=== PATIENT | female | born 1950 | race Caucasian/White ===

== ENCOUNTER 2017-08-04 22:11 | Emergency (ER) | payer MEDICARE ==
[~2017-08-04] VITALS: Ht 165.1 cm; Wt 92.0 kg
[2017-08-04 22:21] VITALS: BP 139/65; PULSE 67; RESP 16; TEMP 98; O2SAT 96
[2017-08-04] MEDS ORDERED: HYDR12.57 PO (22:32)
[2017-08-04] MEDS ORDERED: B-122000 PO (22:32)
[2017-08-04] MEDS ORDERED: ATEN25TA PO (22:32)
[2017-08-04] MEDS ORDERED: CALC500T37 PO (22:32)
[2017-08-04] MEDS ORDERED: CENTCHW4 CHEW (22:32)
[2017-08-04] MEDS ORDERED: POTA10CA PO (22:32)
[2017-08-04] MEDS ORDERED: SODIUM CHLORIDE 0.9% FLUSH 10 ML FLUSH IVF PRN (22:45)
--- NOTE | 2017-08-04 23:01 | PD ---
HPI Chief Complaint: Syncope/Near-Syncope Time Seen by Provider: 22:34 Travel History International Travel<30 days: No Contact w/Intl Traveler<30days: No Traveled to known affect area: No History of Present Illness HPI Patient apparently comes in by EMS, apparently had a episode of loss of consciousness, is unaware of her fall or impact. Patient had taken a combination of Zyrtec and Mamie-[place] flu and regular Mamie-[place]view after which she was not feeling well she still felt some malaise fatigue generalizeD. Along with a dry cough, denies any fever rash neck stiffness chest pain or abdominal pain or back pain Patient has a past medical/SURGICAL history significant for hypertension cholecystectomy, gastric bypass, pyloric stenosis, depression, and tonsillectomy PFSH Past Medical History Depression: Yes Hypertension: Yes Neurologic: Yes (MEMORY ISSUES) Tetanus Vaccination: < 5 Years Influenza Vaccination: Yes : 2 Para: 2 Tubal Ligation: Yes Past Surgical History Abdominal Surgery: Yes (GASTRIC BYPASS) Cholecystectomy: Yes Genitourinary Surgery: Yes (PYLORIC STENOSIS) Mastectomy: Yes (BILATERAL ) Tonsillectomy: Yes Social History Alcohol Use: No Tobacco Use: No Substance Use: No Allergies-Medications (Allergen,Severity, Reaction): Coded Allergies: No Known Allergies (Unverified , 08/04/17) Reported Meds & Prescriptions Reported Meds & Active Scripts Active Reported Calcium Ascorbate 500 Mg Tab 500 Mg PO DAILY B-12 (Cyanocobalamin) 2,000 Mcg Tab 2,000 Mcg PO DAILY Potassium Chloride ER (Potassium Chloride) 10 Meq Cap 10 Meq PO DAILY Centrum (Multiple Vitamins W/ Minerals) 1 Chew 1 Tab CHEW DAILY Hydrochlorothiazide 12.5 Mg Cap 12.5 Mg PO DAILY Atenolol 25 Mg Tab 25 Mg PO HS Review of Systems General / Constitutional: No: Fever Eyes: No: Visual changes HENT: Positive: Rhinorrhea Cardiovascular: No: Chest Pain or Discomfort Respiratory: Positive: Cough Gastrointestinal: No: Abdominal Pain Genitourinary: No: Dysuria Musculoskeletal: No: Pain Skin: No Rash Neurologic: No: Weakness Psychiatric: No: Depression Endocrine: No: Polydipsia Hematologic/Lymphatic: No: Easy Bruising Physical Exam Narrative GENERAL: SKIN: Warm and dry. HEAD: Atraumatic. Normocephalic. EYES: Pupils equal and round. No scleral icterus. No injection or drainage. ENT: No nasal bleeding or discharge. Mucous membranes pink and moist. NECK: Trachea midline. No JVD. CARDIOVASCULAR: Regular rate and rhythm. RESPIRATORY: No accessory muscle use. Clear to auscultation. Breath sounds equal bilaterally. GASTROINTESTINAL: Abdomen soft, non-tender, nondistended. MUSCULOSKELETAL: Extremities without clubbing, cyanosis, or edema. No obvious deformities. NEUROLOGICAL: Awake and alert. No obvious cranial nerve deficits. Motor grossly within normal limits. Five out of 5 muscle strength in the arms and legs. Normal speech. PSYCHIATRIC: Appropriate mood and affect; insight and judgment normal. Data Data Last Documented VS Vital Signs Date Time Temp Pulse Resp B/P (MAP) Pulse Ox O2 Delivery O2 Flow Rate FiO2 08/04/17 23:30 62 16 168/72 (104) 100 Room Air 08/04/17 22:21 98.0 Orders Orders Electrocardiogram (08/04/17 22:45) Complete Blood Count With Diff (08/04/17 22:45) Comprehensive Metabolic Panel (08/04/17 22:45) B-Type Natriuretic Peptide (08/04/17 22:45) Troponin I (08/04/17 22:45) Act Partial Throm Time (Ptt) (08/04/17 22:45) Prothrombin Time / Inr (Pt) (08/04/17 22:45) Urinalysis - C+S If Indicated (08/04/17 22:45) Chest, Single Ap (08/04/17 22:45) Ct Brain W/O Iv Contrast(Rout) (08/04/17 22:45) Ecg Monitoring (08/04/17 22:45) Iv Access Insert/Monitor (08/04/17 22:45) Oximetry (08/04/17 22:45) Sodium Chloride 0.9% Flush (Ns Flush) (08/04/17 22:45) Influenzae A/B Antigen (08/04/17 23:01) Labs Laboratory Tests Test 08/04/17 22:50 White Blood Count 8.0 TH/MM3 Red Blood Count 4.84 MIL/MM3 Hemoglobin 12.2 GM/DL Hematocrit 37.1 % Mean Corpuscular Volume 76.6 FL Mean Corpuscular Hemoglobin 25.3 PG Mean Corpuscular Hemoglobin Concent 33.0 % Red Cell Distribution Width 15.3 % Platelet Count 245 TH/MM3 Mean Platelet Volume 8.0 FL Neutrophils (%) (Auto) 71.6 % Lymphocytes (%) (Auto) 21.4 % Monocytes (%) (Auto) 4.6 % Eosinophils (%) (Auto) 1.8 % Basophils (%) (Auto) 0.6 % Neutrophils # (Auto) 5.7 TH/MM3 Lymphocytes # (Auto) 1.7 TH/MM3 Monocytes # (Auto) 0.4 TH/MM3 Eosinophils # (Auto) 0.1 TH/MM3 Basophils # (Auto) 0.0 TH/MM3 CBC Comment DIFF FINAL Differential Comment Prothrombin Time 9.8 SEC Prothromb Time International Ratio 1.0 RATIO Activated Partial Thromboplast Time 20.5 SEC Blood Urea Nitrogen 17 MG/DL Creatinine 0.87 MG/DL Random Glucose 103 MG/DL Total Protein 6.1 GM/DL Albumin 2.8 GM/DL Calcium Level 7.2 MG/DL Alkaline Phosphatase 110 U/L Aspartate Amino Transf (AST/SGOT) 33 U/L Alanine Aminotransferase (ALT/SGPT) 25 U/L Total Bilirubin 0.7 MG/DL Sodium Level 145 MEQ/L Potassium Level 3.1 MEQ/L Chloride Level 111 MEQ/L Carbon Dioxide Level 26.7 MEQ/L Anion Gap 7 MEQ/L Estimat Glomerular Filtration Rate 65 ML/MIN Protein Corrected Calcium 7.7 MG/DL Troponin I LESS THAN 0.02 NG/ML B-Type Natriuretic Peptide 52 PG/ML MDM Medical Decision Making Medical Screen Exam Complete: Yes Emergency Medical Condition: Yes Medical Record Reviewed: Yes Interpretation(s) EKG shows a normal sinus rhythm, 63 bpm, prolonged AR consistent with aV TYPE 1 BLOCK, no STEMI pattern Pulse ox: Excellent PLETH wave, pulse ox is 98% room air which is within normal limits Differential Diagnosis Flu versus viral syndrome versus pneumonia versus dehydration versus anemia versus electrolyte abnormalities Narrative Course CBC shows no leukocytosis no anemia and no thrombocytosis. Coagulation profile is within normal limits. Patient's CMP shows a potassium of 3.1 as well as a calcium of 7.2 protein corrected calcium is 7.7 which is close enough to normal so will give the patient about 1 g of calcium gluconate patient's troponin is negative beta nitrated peptide is negative as well. CT head is negative for any cranial hemorrhage. Diagnosis Primary Impression: Viral syndrome Additional Impression: Vasovagal syncope Patient Instructions: Dehydration (ED), General Instructions, Syncope (DC), Viral Syndrome (ED) Scripts Oseltamivir (Tamiflu) 75 Mg Cap 75 MG PO BID for Mgmt Viral Infection for 5 Days, #10 CAP 0 Refills Prov: Maninder Moran MD 08/04/17 Ondansetron Odt (Zofran Odt) 4 Mg Tab 4 MG SL Q6HR Y for Nausea/Vomiting, #20 TAB 0 Refills Prov: Maninder Moran MD 08/04/17 Disposition: 01 DISCHARGE HOME Condition: Stable Maninder Moran MD Aug 04, 2017 23:01
[2017-08-04 23:03] LABS: AUTOMATED NEUTROPHIL # 5.7 TH/MM3 (1.8-7.7); BASOPHIL % 0.6 % (0.0-2.0); EOSINOPHIL # 0.1 TH/MM3 (0-0.4); EOSINOPHIL % 1.8 % (0.0-4.0); HEMATOCRIT 37.1 % (35.0-46.0); HEMOGLOBIN 12.2 GM/DL (11.6-15.3); LYMPH % 21.4 % (9.0-44.0); LYMPHOCYTE # 1.7 TH/MM3 (1.0-4.8); MEAN CELL VOLUME 76.6 FL (80.0-100.0); MEAN CORPUSCULAR HEMOGLOBIN 25.3 PG (27.0-34.0); MONO % 4.6 % (0.0-8.0); MONOCYTE # 0.4 TH/MM3 (0-0.9); NEUT % 71.6 % (16.0-70.0); PLATELET COUNT 245 TH/MM3 (150-450); RED BLOOD COUNT 4.84 MIL/MM3 (4.00-5.30); RED CELL DISTRIBUTION WIDTH 15.3 % (11.6-17.2)
--- NOTE | 2017-08-04 23:23 | RADRPT ---
EXAM DATE/TIME: 08/04/2017 23:09 [facility] COMPARISON: No previous studies available for comparison. INDICATIONS : Syncope episode. RADIATION DOSE: 34.85 CTDIvol (mGy) MEDICAL HISTORY : Hypertension. SURGICAL HISTORY : Cholecystectomy. Gastric bypass. Tubal ligation. ENCOUNTER: Initial ACUITY: 1 day PAIN SCALE: 0/10 LOCATION: cranial TECHNIQUE: Multiple contiguous axial images were obtained of the head. Using automated exposure control and adj ustment of the mA and/or kV according to patient size, radiation dose was kept as low as reasonably a chievable to obtain optimal diagnostic quality images. DICOM format image data is available electro nically for review and comparison. FINDINGS: CEREBRUM: The ventricles are normal for age. No evidence of midline shift, mass lesion, hemorrhage or acute in farction. No extra-axial fluid collections are seen. POSTERIOR FOSSA: The cerebellum and brainstem are intact. The 4th ventricle is midline. The cerebellopontine angle i s unremarkable. EXTRACRANIAL: The visualized portion of the orbits is intact. SKULL: The calvaria is intact. No evidence of skull fracture. CONCLUSION: Normal examination. Scar Cespedes MD on August 04, 2017 at 23:21 Board Certified Radiologist. This report was verified electronically.
[2017-08-04 23:29] LABS: ALBUMIN 2.8 GM/DL (3.4-5.0); ALKALINE PHOSPHATASE 110 U/L (45-117); ALT (GPT) 25 U/L (10-53); AST (GOT) 33 U/L (15-37); BICARBONATE 26.7 MEQ/L (21.0-32.0); BLOOD UREA NITROGEN 17 MG/DL (7-18); CALCIUM 7.2 MG/DL (8.5-10.1); CALCIUM-PROTEIN CORRECTED 7.7 MG/DL (8.5-10.1); CHLORIDE 111 MEQ/L (98-107); CREATININE 0.87 MG/DL (0.50-1.00); GLOMERULAR FILTRATION RATE 65 ML/MIN (>89); GLUCOSE,RANDOM 103 MG/DL (74-106); SODIUM (NA) 145 MEQ/L (136-145); TOTAL BILIRUBIN ADULT 0.7 MG/DL (0.2-1.0); TOTAL PROTEIN 6.1 GM/DL (6.4-8.2); TROPONIN I LESS THAN 0.02 NG/ML (0.02-0.05)
[2017-08-04 23:30] VITALS: BP 168/72; PULSE 62; RESP 16; O2SAT 100
[2017-08-04] MEDS ORDERED: OSEL75 PO (23:51)
[2017-08-04] MEDS ORDERED: ZOFR4TAB3 SL (23:51)
--- NOTE | 2017-08-04 23:59 | RADRPT ---
EXAM DATE/TIME: 08/04/2017 23:40 [facility] COMPARISON: No previous studies available for comparison. INDICATIONS : Cough and congestion. MEDICAL HISTORY : Hypertension. SURGICAL HISTORY : Cholecystectomy. ENCOUNTER: Initial ACUITY: 3 days PAIN SCORE: 0/10 LOCATION: Bilateral chest FINDINGS: A single view of the chest demonstrates the lungs to be symmetrically aerated without evidence of mas s, infiltrate or effusion. The cardiomediastinal contours are unremarkable. Osseous structures are intact. CONCLUSION: No acute disease. Scar Cespedes MD on August 04, 2017 at 23:57 Board Certified Radiologist. This report was verified electronically.
[2017-08-05] LABS: BACTERIA, URINE RARE /hpf; BILIRUBIN, URINE NEG (NEG); BLOOD, URINE TRACE (NEG); GLUCOSE,URINE NEG (NEG); KETONE, URINE NEG (NEG); MUCUS URINE FEW /lpf (OCC); NITRITE,URINE NEG (NEG); SQUAMOUS EPITHELIAL CELL URINE 1 /hpf (0-5); URINE COLOR YELLOW (YELLW/STRAW); URINE LEUKOCYTE ESTERASE LARGE (NEG)
[2017-08-05] MEDS ORDERED: CALCIUM GLUCONATE INJ 1 GM in SODIUM CHLORIDE 0.9% INJ 100 ML IV ONE ×2
[2017-08-05] MEDS ORDERED: CALCIUM CARBONATE 500 MG CHEWABLE TAB CHEW ONE
[2017-08-05] MEDS ORDERED: POTASSIUM CHLORIDE 10 MEQ CONTROLLED RELEASE TAB PO ONE
[2017-08-05 00:06] LABS: PROTHROMBIN TIME - PATIENT 9.9 SEC (9.8-11.6)
[2017-08-05 00:19] VITALS: BP 148/63
--- NOTE | 2017-08-05 14:30 | EKG ---
Date Performed: 08/04/2017 Time Performed: 22:24:04 PTAGE: 67 years EKG: Sinus rhythm LOW QRS VOLTAGE ABNORMAL ECG NO PREVIOUS TRACING DOCTOR: Kranthi Dick Interpretating Date/Time 08/05/2017 14:28:28
== END 2017-08-05 00:32 | disposition home or self-care (01) ==
LOC: NEPC 22:11
DX: B34.9 Viral infection, unspecified (principal); R55 Syncope and collapse; R94.31 Abnormal electrocardiogram [ECG] [EKG]; F32.9 Major depressive disorder, single episode, unspecified; I10 Essential (primary) hypertension; Z79.899 Other long term (current) drug therapy
CPT/HCPCS: 70450; 71045; 80053; 81001; 83880; 84484; 85025; 85610; 85730; 87081; 87804; 87880; 93005